=== PATIENT | male | born 1960 | race Caucasian/White ===

== ENCOUNTER 2018-09-06 16:05 | Emergency (ER) | payer BC ==
[~2018-09-06] VITALS: Wt 89.0 kg
[~2018-09-06 16:05] MED LIST: HYDR-762 PO; IBUP800T48 PO; TAMS-14 PO; ZOF8 PO
[2018-09-06 16:08] VITALS: BP 165/86; PULSE 78; RESP 18
[2018-09-06] MEDS ORDERED: IBUPROFEN 600 MG TAB PO ONE (18:30)
[2018-09-06] MEDS ORDERED: IBUP-1542 PO (19:02)
--- NOTE | 2018-09-06 19:04 | ERD ---
ER Documentation Chief Complaint Chief Complaint R FOOT PAIN AFTER INJURY AT HOME 2 DAYS PRIOR HPI This 58-year-old male presents with pain in his right foot after twisting at home assisting with his father. He has pain in the right base of the fifth metatarsal area. Denies restricted range of motion weakness or additional pain. ROS All systems reviewed and are negative except as per history of present illness. Medications Home Meds Active Scripts Ibuprofen* (Motrin*) 600 Mg Tab, 600 MG PO Q6, #30 TAB Prov:LISSETH ROUSE MD 09/06/18 Ondansetron Hcl* (Zofran* ODT) 8 mg -ODT Tab.disper, 8 MG PO Q6 PRN for NAUSEA AND/OR VOMITING, #10 TAB Prov:LAURA FARRELL MD 02/27/16 Tamsulosin Hcl* (Flomax*) 0.4 Mg Cap.er.24h, 0.4 MG PO QPM, #10 CAP Prov:LAURA FARRELL MD 02/27/16 Ibuprofen* (Motrin*) 800 Mg Tab, 800 MG PO Q8, #10 TAB Prov:LAURA FARRELL MD 02/27/16 Hydrocodone Bit-Acetaminophen* ([place]*) 10-325 Mg Tablet, 1 TAB PO Q6 PRN for PAIN, #10 TAB Prov:LAURA FARRELL MD 02/27/16 Allergies Allergies: Coded Allergies: No Known Drug Allergies (Verified Allergy, Unknown, 02/27/16) PMhx/Soc Hx Cardiac Disorders: Yes (htn, cholesterol) Hx Miscellaneous Medical Probl: Yes (bph) Hx Alcohol Use: No Hx Substance Use: No Hx Tobacco Use: No Smoking Status: Never smoker FmHx Family History: No diabetes, No coronary disease, No other Physical Exam Vitals Vital Signs Date Temp Pulse Resp B/P (MAP) Pulse Ox O2 O2 Flow FiO2 Time Delivery Rate 09/06/18 98.1 78 18 165/86 99 16:08 (112) Physical Exam Const: No acute distress Head: Atraumatic Eyes: Normal Conjunctiva ENT: Normal External Ears, Nose and Mouth. Neck: Full range of motion. No meningismus. Resp: Clear to auscultation bilaterally Cardio: Regular rate and rhythm, no murmurs Abd: Soft, non tender, non distended. Normal bowel sounds Skin: No petechiae or rashes Back: No midline or flank tenderness Ext: No cyanosis, or edema. Tenderness and swelling at the base of right fifth metatarsal area. No restricted range of motion weakness or warmth erythema or bleeding. Neur: Awake and alert Psych: Normal Mood and Affect Results 24 hrs Current Medications Medications Dose Sig/Rachelle Start Time Status Last (Trade) Ordered Route PRN Stop Time Admin Dose Reason Admin Ibuprofen 600 mg ONCE ONCE 09/06/18 DC 09/06/18 (Motrin) PO 18:30 18:32 09/06/18 18:31 Procedures/MDM X-ray right foot 3V Interpreted by me: Bones: Nondisplaced fracture through the base of the right fifth metatarsal. Joints: No dislocation Foreign body: None. Impression-nondisplaced fracture of the base of the right fifth metatarsal. Patient presents with a nondisplaced right fifth metatarsal fracture without evidence of infection, ischemia or deficits. We discharged home in a boot and crutches with instructions for orthopedic follow-up and return precautions for fevers, redness, new worsening symptoms. The patient was stable with no new complaints during the ER course. Clinically, there is no current evidence to suggest meningitis, sepsis, acute abdomen, pneumonia, stroke, acute coronary syndrome, pulmonary embolism, aortic dissection or any other emergent condition appearing to require further evaluation or hospitalization. Patient counseled regarding my diagnostic impression and care plan. Prior to discharge all questions answered. Pt agrees with treatment plan and understands strict return precautions. Pt is instructed to follow up with primary care provider within 24- 48 hours. Precautionary instructions provided including instructions to return to the ER if not improving or for any worsening or changing symptoms or concerns. Departure Diagnosis: Primary Impression: Fracture, foot Encounter type: initial encounter Fracture type: closed Laterality: right Qualified Codes: S92.901A - Unspecified fracture of right foot, initial encounter for closed fracture Condition: Stable Patient Instructions: Fracture, Foot Referrals: ARLENE LAU MD Additional Instructions: There is a small fracture through the area of pain. See orthopedist for further evaluation and treatment. Recheck otherwise for new or worsening symptoms. May need authorization from primary doctor for orthopedist visit. LISSETH ROUSE MD Sep 06, 2018 19:04
== END 2018-09-06 19:11 | disposition home or self-care (01) ==
LOC: FTE 16:05
DX: S92.901A Unspecified fracture of right foot, initial encounter for closed fracture (principal); I10 Essential (primary) hypertension; X58.XXXA Exposure to other specified factors, initial encounter; Y92.009 Unspecified place in unspecified non-institutional (private) residence as the place of occurrence of the external cause
CPT/HCPCS: 73630; Z7502; Z7610